=== PATIENT | female | born 1950 | race Caucasian/White ===

== ENCOUNTER 2021-12-10 12:51 | Emergency (ER) | payer MEDICARE, OTHER ==
[~2021-12-10] VITALS: Ht 157.5 cm; Wt 86.2 kg
[2021-12-10] MEDS ORDERED: Cyclobenzaprine5 MG PO (15:17)
[2021-12-10] MEDS ORDERED: HYDR1TAB94 PO (15:17)
[2021-12-10] MEDS ORDERED: ALBU8HFA2 INH (15:44)
[2021-12-10] MEDS ORDERED: FLOVENT HFA12 GM (15:44)
[2021-12-10] MEDS ORDERED: AMLO5 PO (15:44)
[2021-12-10] MEDS ORDERED: MONT10T (15:45)
[2021-12-10] MEDS ORDERED: OMEP20ER PO (15:45)
[2021-12-10] MEDS ORDERED: ASPI81CH PO (15:45)
[2021-12-10] MEDS ORDERED: LISI20 PO (15:45)
[2021-12-10] MEDS ORDERED: ATOR80 (15:45)
== END 2021-12-10 16:19 | disposition home or self-care (01) ==
LOC: ER 12:51
DX: M79.18 Myalgia, other site (principal); R06.4 Hyperventilation; M54.2 Cervicalgia; Z60.9 Problem related to social environment, unspecified; Z79.899 Other long term (current) drug therapy; Z79.82 Long term (current) use of aspirin
CPT/HCPCS: 72040; A9270

== ENCOUNTER → 2022-12-24 | Outpatient (CLI) | payer MEDICARE, OTHER ==
[~2022-12-24] MED LIST: ALBU8HFA2 INH; AMLO5 PO; ASPI81CH PO; ATOR80; Cyclobenzaprine5 MG PO; FLOVENT HFA12 GM; HYDR1TAB94 PO; LISI20 PO; MONT10T; OMEP20ER PO
[2022-12-24 20:07] LABS: Albumin, Blood 3.9 g/dL (3.4-5.0); Albumin/Globulin Ratio 1.1 (0.8-1.8); Bilirubin, Total 0.4 mg/dL (0.1-1.0); Bun/Creatinine Ratio 18.1 (12.0-20.0); Calcium, Blood 9.5 mg/dL (8.5-10.1); Creatinine, Blood 0.66 mg/dL (0.40-1.00); Globulin, Blood 3.6 g/dL (2.2-4.0); Potassium, Blood 3.9 mmol/L (3.5-5.5); Total Protein, Blood 7.5 g/dL (6.4-8.2)
[2022-12-25 08:11] LABS: HEMOGLOBIN A1C 6.3 % (4.8-5.6)
== END | disposition home or self-care (01) ==
LOC: LAB SHORT 13:05 → LAB 13:05
PROVIDERS: Family Medicine
DX: Z11.59 Encounter for screening for other viral diseases (principal); E11.9 Type 2 diabetes mellitus without complications
CPT/HCPCS: 80053; 83036; 86803

== ENCOUNTER 2023-06-18 09:31 | Day surgery (SDC) | payer MEDICARE, OTHER ==
[~2023-06-18] VITALS: Ht 154.9 cm; Wt 86.3 kg
[2023-06-18] VITALS (15 sets, daily range): BP systolic 110–170; BP diastolic 63–100
[~2023-06-18 09:31] MED LIST changes: +DIAZ5 PO; +ERGO50000 PO; +METF500 PO; +NAPR220 PO; +SYMBICORT 160-4.6 GM INH
--- NOTE | 2023-06-18 16:35 | NUR ---
ARRIVAL TO SURGICAL UNIT ALERT & PLEASANT. ASSESSMENT CHARTED. ABLE TO WIGGLE TOES & REPORTS MILD PAIN. DENIES N/V. SNACKS & WATER GIVEN.
[2023-06-19 03:25] VITALS: BP 145/71
[2023-06-19 04:55] LABS: BASOPHILS ABSOLUTE AUTO 0.03 K/mm3 (0.00-0.23); BASOPHILS PERCENT AUTO 0 % (0-2); EOSINOPHILS ABSOLUTE AUTO 0.06 K/mm3 (0.00-0.68); EOSINOPHILS PERCENT AUTO 1 % (0-6); Hemoglobin 12.5 g/dL (11.5-16.0); IMMATURE GRAN ABSOLUTE AUTO 0.06 K/mm3 (0.00-0.10); IMMATURE GRAN PERCENT AUTO 1 % (0-1); LYMPHOCYTES ABSOLUTE AUTO 2.78 K/mm3 (0.84-5.20); LYMPHOCYTES PERCENT AUTO 25 % (21-46); MONOCYTES ABSOLUTE AUTO 0.83 K/mm3 (0.16-1.47); MONOCYTES PERCENT AUTO 7 % (4-13); Mean Corpuscular HGB 29.3 pg (26.0-34.0); Mean Corpuscular HGB Conc 32.9 g/dL (31.5-36.5); Mean Corpuscular Volume 89 fL (80-100); Mean Platelet Volume 10.9 fL (9.1-12.4); NEUTROPHILS ABSOLUTE AUTO 7.49 K/mm3 (1.96-9.15); NEUTROPHILS PERCENT AUTO 67 % (41-73); Platelet Count 243 K/mm3 (150-400); RDW Standard Deviation 45.2 fL (35.1-46.3); Red Blood Cell Count 4.27 M/mm3 (3.80-5.20); White Blood Cell Count 11.25 K/mm3 (4.00-11.30)
[2023-06-19 05:41] LABS: Bun/Creatinine Ratio 33.9 (12.0-20.0); Calcium, Blood 9.3 mg/dL (8.5-10.1); Creatinine, Blood 0.71 mg/dL (0.40-1.00); Potassium, Blood 4.1 mmol/L (3.5-5.5)
--- NOTE | 2023-06-19 06:11 | NUR ---
SHIFT SUMMARY PT POD 0 LEFT TOTAL KNEE, PT HAS BEEN UP AMBULATING, IS TOLERATING PO INTAKE AND VOIDING. POST OP VITALS ARE STABLE. DRESSING C/D/I. PT HAS HAD QUITE A BIT OF PAIN THIS SHIFT. MEDICATED PER EMAR WITH EFFECT. NO ACUTE CHANGES OVERNIGHT. BED IN LOWEST POSITION, CALL LIGHT WITHIN REACH.
[2023-06-19 07:27] VITALS: BP 137/77
--- NOTE | 2023-06-19 11:07 | NUR ---
Pt. is awake and sitting upright in a recliner when she welcomes my visit. Spouse is present. Pt. is unsettled that she could not complete her PT in the morning. Listen with empathy and a calming presence. Facilitated a life review. Pt. began to display evidence of a lightened mood. Prayed with Pt. Pt. and spouse both verbalized gratitude for the spiritual care visit.
[2023-06-19 14:17] VITALS: BP 168/60
[2023-06-19] MEDS ORDERED: Percocet 5-3251 EACH PO (14:32)
--- NOTE | 2023-06-19 15:04 | NUR ---
DISCHARGE PT CLEARED THERAPY. EATING, DRINKING, & VOIDING FREQ. IS VERY FATIGUED & REPORTS HIGH PAIN. WISHES TO GO HOME. POLAR PACK & DRSGS SENT. (RX GIVEN TO YESTERDAY). ESCORTED OUT VIA WC.
== END 2023-06-19 15:34 | disposition home or self-care (01) ==
LOC: ORSCMMR 09:31 → ORD 11:00 → ORSCMMR 11:00 → SURS 16:44 → ORSCMMR 06-19 15:34 → SURS 06-19 15:34 → ORD 07-23 11:00
PROVIDERS: Orthopaedic Surgery
PROC: 0SRD0JA Replacement of Left Knee Joint with Synthetic Substitute, Uncemented, Open Approach (ICD-10-PCS; principal; 2023-06-18 11:00)
DX: M17.12 Unilateral primary osteoarthritis, left knee (principal); I10 Essential (primary) hypertension; J45.909 Unspecified asthma, uncomplicated; E11.9 Type 2 diabetes mellitus without complications; Z86.73 Personal history of transient ischemic attack (TIA), and cerebral infarction without residual deficits; E66.9 Obesity, unspecified; Z68.36 Body mass index [BMI] 36.0-36.9, adult; Z79.899 Other long term (current) drug therapy; Z79.84 Long term (current) use of oral hypoglycemic drugs
CPT/HCPCS: 36415; 73560-LT; 80048; 82947; 85025; 94760; 97110; 97116; 97161; 97530; A9270; C1776; J0171; J0690; J0735; J1170; J1885; J2250; J2405; J2704; J2795; J3010; J7120

== ENCOUNTER 2023-10-26 14:41 | Observation (INO) | payer MEDICARE, OTHER ==
[~2023-10-26] VITALS: Ht 154.9 cm; Wt 87.9 kg
[~2023-10-26 14:41] MED LIST changes: -ATOR80; +ATOR80 PO; -MONT10T; +MONT10T PO; +Percocet 5-3251 EACH PO
[2023-10-26 15:13] LABS: BASOPHILS ABSOLUTE AUTO 0.03 K/mm3 (0.00-0.23); BASOPHILS PERCENT AUTO 1 % (0-2); EOSINOPHILS ABSOLUTE AUTO 0.08 K/mm3 (0.00-0.68); EOSINOPHILS PERCENT AUTO 1 % (0-6); Hematocrit 39.1 % (33.0-51.0); Hemoglobin 12.7 g/dL (11.5-16.0); IMMATURE GRAN ABSOLUTE AUTO 0.02 K/mm3 (0.00-0.10); IMMATURE GRAN PERCENT AUTO 0 % (0-1); LYMPHOCYTES ABSOLUTE AUTO 1.76 K/mm3 (0.84-5.20); LYMPHOCYTES PERCENT AUTO 28 % (21-46); MONOCYTES ABSOLUTE AUTO 0.63 K/mm3 (0.16-1.47); MONOCYTES PERCENT AUTO 10 % (4-13); Mean Corpuscular HGB Conc 32.5 g/dL (31.5-36.5); Mean Corpuscular Volume 86 fL (80-100); Mean Platelet Volume 10.6 fL (9.1-12.4); NEUTROPHILS ABSOLUTE AUTO 3.68 K/mm3 (1.96-9.15); NEUTROPHILS PERCENT AUTO 59 % (41-73); Platelet Count 217 K/mm3 (150-400); RDW Standard Deviation 47.7 fL (35.1-46.3); Red Blood Cell Count 4.53 M/mm3 (3.80-5.20)
[2023-10-26] MEDS ORDERED: GABA300 PO (15:21)
[2023-10-26 15:43] LABS: Albumin, Blood 3.8 g/dL (3.4-5.0); Albumin/Globulin Ratio 1.2 (0.8-1.8); Bilirubin, Total 0.4 mg/dL (0.1-1.0); Bun/Creatinine Ratio 30.4 (12.0-20.0); Calcium, Blood 9.2 mg/dL (8.5-10.1); Creatinine, Blood 0.69 mg/dL (0.40-1.00); Globulin, Blood 3.1 g/dL (2.2-4.0); Potassium, Blood 3.9 mmol/L (3.5-5.5); Total Protein, Blood 6.9 g/dL (6.4-8.2)
[2023-10-26] MEDS ORDERED: Clopidogrel Bisulfate 75 MG Tab PO ONE (15:55)
[2023-10-26 18:06] VITALS: BP 183/79
[2023-10-26 19:14] VITALS: BP 213/81
[2023-10-26] MEDS ORDERED: Metoprolol Tartrate 1 MG/ML 5 ML VIAL IV PRN ×2 (19:45)
[2023-10-26] MEDS ORDERED: Aspirin 81 MG Chew PO SCH (21:00)
[2023-10-26] MEDS ORDERED: Gabapentin 300 MG Cap PO SCH (21:00)
[2023-10-27 02:14] VITALS: BP 151/78
[2023-10-27] MEDS ORDERED: HYDROcodone 5-APAP 325 TAB PO ONE (03:00)
[2023-10-27 04:37] LABS: BASOPHILS ABSOLUTE AUTO 0.02 K/mm3 (0.00-0.23); BASOPHILS PERCENT AUTO 1 % (0-2); EOSINOPHILS ABSOLUTE AUTO 0.12 K/mm3 (0.00-0.68); EOSINOPHILS PERCENT AUTO 3 % (0-6); Hematocrit 37.8 % (33.0-51.0); Hemoglobin 12.3 g/dL (11.5-16.0); IMMATURE GRAN ABSOLUTE AUTO 0.02 K/mm3 (0.00-0.10); IMMATURE GRAN PERCENT AUTO 1 % (0-1); LYMPHOCYTES ABSOLUTE AUTO 1.63 K/mm3 (0.84-5.20); LYMPHOCYTES PERCENT AUTO 39 % (21-46); MONOCYTES ABSOLUTE AUTO 0.54 K/mm3 (0.16-1.47); MONOCYTES PERCENT AUTO 13 % (4-13); Mean Corpuscular HGB 28.2 pg (26.0-34.0); Mean Corpuscular HGB Conc 32.5 g/dL (31.5-36.5); Mean Corpuscular Volume 87 fL (80-100); Mean Platelet Volume 10.3 fL (9.1-12.4); NEUTROPHILS PERCENT AUTO 45 % (41-73); Platelet Count 219 K/mm3 (150-400); RDW Coefficient Variation 15.2 % (11.7-14.2); RDW Standard Deviation 48.5 fL (35.1-46.3); Red Blood Cell Count 4.36 M/mm3 (3.80-5.20); White Blood Cell Count 4.23 K/mm3 (4.00-11.30)
[2023-10-27 04:58] LABS: Bun/Creatinine Ratio 31.8 (12.0-20.0); Calcium, Blood 9.1 mg/dL (8.5-10.1); Creatinine, Blood 0.72 mg/dL (0.40-1.00); Potassium, Blood 3.8 mmol/L (3.5-5.5)
[2023-10-27] MEDS ORDERED: Omeprazole 20 MG CapCR PO SCH (06:00)
[2023-10-27 07:34] VITALS: BP 147/65
[2023-10-27] MEDS ORDERED: OxyCODONE HCL 5 MG TAB PO PRN (08:40)
[2023-10-27] MEDS ORDERED: Gabapentin 300 MG Cap PO SCH (09:00)
[2023-10-27] MEDS ORDERED: Enoxaparin 40 MG/0.4 ML SYR SC SCH (09:00)
[2023-10-27] MEDS ORDERED: Montelukast Sodium 10 MG Tab PO SCH (09:00)
[2023-10-27] MEDS ORDERED: Ergocalciferol 50000 Intn'l Units PO SCH (09:00)
[2023-10-27] MEDS ORDERED: Atorvastatin 40 MG Tab PO SCH (09:00)
--- NOTE | 2023-10-27 09:58 | NUR ---
Pt states is claustophobic for MRI. PO Ativan x1 ordered per Dr. Leon telephone order.
[2023-10-27] MEDS ORDERED: LORazepam 0.5 MG Tab PO ONE (10:00)
[2023-10-27 15:06] VITALS: BP 154/83
[2023-10-27] MEDS ORDERED: ASPI81CH PO (15:45)
[2023-10-27] MEDS ORDERED: PANT20 PO (15:46)
[2023-10-27] MEDS ORDERED: CLOP75 PO (15:47)
[2023-10-27] MEDS ORDERED: Clopidogrel Bisulfate 75 MG Tab PO SCH (16:00)
--- NOTE | 2023-10-27 17:05 | NUR ---
SHIFT/DISCHARGE SUMMARY Pt remains A&Ox4 this shift. No neuro deficits assessed. Up to bathroom independently. VSS. Resp even nonlabored on RA. Tolerating regular diet and fluids. Voiding without difficulty. All discharge instructions reviewed with pt and spouse. Pt to lobby via wc.
[2023-10-28] MEDS ORDERED: Pantoprazole Sodium 40 MG Tab PO SCH (06:00)
== END 2023-10-27 16:50 | disposition home or self-care (01) ==
LOC: ER 14:41 → MEDS 14:42
PROVIDERS: Student in an Organized Health Care Education/Training Program; ADMIT Internal Medicine
DX: I63.89 Other cerebral infarction (principal); I10 Essential (primary) hypertension; E78.5 Hyperlipidemia, unspecified; E11.9 Type 2 diabetes mellitus without complications; J45.909 Unspecified asthma, uncomplicated; H53.2 Diplopia; E66.9 Obesity, unspecified; K22.70 Barrett's esophagus without dysplasia; Z88.8 Allergy status to other drugs, medicaments and biological substances; Z88.2 Allergy status to sulfonamides
CPT/HCPCS: 36415; 70450; 70544; 70549; 80048; 80053; 85025; 93005; 93010; 93306; 93971; 96372; 96374; 97161; 99285-25; A9270; A9579; G0378; J1650